=== PATIENT | male | born 1985 | race Caucasian/White ===

== ENCOUNTER 2021-05-07 19:26 | Emergency (ER) | payer OTHER ==
[2021-05-07 20:07] LABS: BASOPHIL 0.5 % (0-2); EOSINOPHIL 0.2 % (0-5); HCT 45.1 % (42.0-52.0); HGB 15.1 g/dl (13.2-18.0); LYMPHOCYTE 11.1 % (15-48); MCH 28.1 pg (25.0-31.0); MCHC 33.5 g/dL (32.0-36.0); MONOCYTE 7.2 % (0-12); MPV 10.2 fL (6.0-9.5); NEUTROPHIL 80.3 % (41-80); NRBC 0; PLT 257 K/uL (150-400); RBC 5.37 M/uL (4.70-6.00); RDW 12.4 % (11.5-14.0); WBC 9.7 K/uL (4.0-10.5)
[2021-05-07 20:17] LABS: BILIRUBIN NEGATIVE (NEGATIVE); BLOOD TRACE-INTACT Ery/uL (NEGATIVE); CLARITY CLEAR (CLEAR); COLOR YELLOW (YELLOW); GLUCOSE (U) NORMAL (NORMAL); LEUKOCYTES NEGATIVE Leu/uL (NEGATIVE); NITRITE NEGATIVE (NEGATIVE); PROTEIN NEGATIVE (NEGATIVE); SPECIFIC GRAVITY 1.025 (1.001-1.030); UROBILINOGEN 0.2 mg/dL (0.2-1.0)
[2021-05-07 20:23] LABS: URINARY WBC RARE
[2021-05-07 20:29] LABS: ALBUMIN 3.7 g/dL (3.4-5.0); BILIRUBIN - TOTAL 0.5 mg/dL (0.2-1.0); BUN/CREAT RATIO (CALC) 12.5 RATIO; CREATININE 1.28 mg/dL (0.67-1.17); GLOBULIN (CALCULATION) 3.8 g/dL; POTASSIUM 3.8 mmol/L (3.5-5.1); TOTAL PROTEIN 7.5 g/dL (6.4-8.2)
[2021-05-07] MEDS ORDERED: NORCO 5-325 TA1 EACH PO (21:41)
[2021-05-07] MEDS ORDERED: FLOMAX0.4 MG PO (21:41)
== END 2021-05-07 21:54 | disposition home or self-care (01) ==
LOC: FER 19:26
PROVIDERS: Emergency Medicine
DX: N13.2 Hydronephrosis with renal and ureteral calculous obstruction (principal)
CPT/HCPCS: 36415; 80053; 81001; 83690; 85025; J1885; J2405; J7030